=== PATIENT | female | born 1975 | race Caucasian/White ===

== ENCOUNTER 2018-10-18 08:30 | Inpatient (IN) | payer OTHER ==
[~2018-10-18] VITALS: Ht 162.6 cm; Wt 82.8 kg
[2018-10-18] VITALS (26 sets, daily range): BP systolic 110–137; BP diastolic 50–81; PULSE 91–114; RESP 13–22; Ht 162.6 cm; Wt 82.8 kg
[~2018-10-18 08:30] MED LIST: CEFAZOLIN 2 GM/50 ML (PMX) 50 ML IVPB ONE; LISI-471 PO
[2018-10-18] MEDS: SOD CHLORIDE 0.9% 1,000 ML IV SCH ×2 (10:02→20:48)
[2018-10-18] MEDS ORDERED: BUPIVACAINE 0.25% (MPF) 30 ML INJ ONE (12:15)
--- NOTE | 2018-10-18 12:27 | PREAC ---
Date/Time of Note Date/Time of Note DATE: 10/18/18 TIME: 12:26 Anesthesia Eval and Record Evaluation Time Pre-Procedure Interview DATE: 10/18/18 TIME: 12:26 Age 43 Sex female NPO: 8 hrs Preoperative diagnosis thyroid goiter Planned procedure total thyroidectomy Past Medical History Past Medical History: Includes Cardio: HTN GI: Obesity Surgery & Anesthesia Issues No known issue Meds Anticoagulation: No Beta Wilda within 24 hr: No Reason Beta Wilda not given: Pt. not on B-Wilda Reported Medications Lisinopril* (Lisinopril*) 20 Mg Tablet, 20 MG PO DAILY, #30 TAB 10/18/18 Current Medications Sodium Chloride 1,000 ml @ 75 mls/hr [id number] IV Last administered on 10/18/18at 10:02; Admin Dose 75 MLS/HR; Start 10/18/18 at 06:00; Stop 10/18/18 at 23:00 Meds reviewed: Yes Allergies Coded Allergies: No Known Allergies (Verified Allergy, Unknown, 10/18/18) Allergies Reviewed: Yes Labs/Studies Labs Reviewed: Reviewed by anesthesiologist Result Diagram: 10/18/18 0951 Laboratory Tests 10/18/18 09:51 test: Negative Pre-procedure Exam Last vitals Vital Signs Date Temp Pulse Resp B/P (MAP) Pulse Ox O2 O2 Flow FiO2 Time Delivery Rate 10/18/18 98.6 97 16 136/68 100 Room Air 10:03 (90) Airway: Adequate mouth opening, Adequate thyromental dist Mallampati: Mallampati IV Teeth: Normal Lung: Normal Heart: Normal ASA Physical Status ASA physical status: 2 Emergency: None Pre-operative Attestations Prior to commencing anesthesia and surgery, the patient was re-evaluated, there was verification of: *The patient's identity *The results of appropriate recent lab work and preoperative vital signs *The above evaluation not changing prior to induction *Anesthetic plan, risk benefits, alternative and complications discussed with patient/family; questions answered; patient/family understands, accepts and wishes to proceed. RANDALL SHIRLEY DO Oct 18, 2018 12:27
[2018-10-18] MEDS ORDERED: ROCURONIUM 50 MG INJ ONE (12:44)
[2018-10-18] MEDS ORDERED: ONDANSETRON 4 MG INJ ONE (12:44)
[2018-10-18] MEDS ORDERED: CEFAZOLIN 1 GM INJ ONE (12:44)
[2018-10-18] MEDS ORDERED: MIDAZOLAM 1 MG/ML 2 ML INJ ONE (12:44)
[2018-10-18] MEDS ORDERED: LIDOCAINE 2% (SDV) 5 ML INJ ONE (12:44)
[2018-10-18] MEDS ORDERED: PROPOFOL 20 ML ONE (12:44)
[2018-10-18] MEDS ORDERED: HYDROmorphONE 2 MG/ML SYG ONE (13:42)
[2018-10-18] MEDS ORDERED: SUGAMMADEX SODIUM 200 MG/2 ML VIAL IV ONE (14:24)
--- NOTE | 2018-10-18 14:35 | OPR ---
Date/Time of Note Date/Time of Note DATE: 10/18/18 TIME: 14:26 Operative Report Procedure Date: Oct 18, 2018 Preoperative Diagnosis multinodular goiter Postoperative Diagnosis same Operation/Procedure Performed 1. total thyroidectomy 2. modifier 22 for difficulty of operation due to anatomy and size of the multinodular goiter which altered and deformed the anatomy 3. localized adjacent tissue transfer with the use of skin flaps 24 sq cm defect of the neck 4. therapeutic injection of subcutaneous local anesthesia Surgeon see signature line A[employer] Architect none Anesthesia Type: general Estimated Blood Loss: 0 - 10 ml's Transfusion none Specimen total thyroid Grafts/Implants none Complications none Pt Condition Post Procedure: stable Indications This is a 43-year-old female with symptomatic multinodular goiter. She says that the pressure from the goiter is very significant. She has difficulty breathing and swallowing. Imaging shows evidence of tracheal deviation. She is brought to the OR for a total thyroidectomy. Risks alternatives benefits and personal were discussed the patient. Patient expressed understanding and consents to the operation. In particular due to the size of the multinodular goiter and the altered anatomy there is an increased risk for recurrent laryngeal nerve injury. This was discussed with the patient and the patient expressed understanding and consents to the operation. Procedure Description Patient is taken to the OR and prepped and draped in usual sterile fashion. Surgical time was performed. IV antibiotics given. Standard collar incision was made to breaths above the suprasternal notch. Dissection with cautery was c arried through the platysma. Superior inferior platysmal flaps are created. On initial inspection there is an enlarged quarter with altered anatomy with difficulty identifying the right and left lobes. Decision was made to divide the strap muscles at top one third on the left and right. This allowed further mobilization and exposure of the thyroid. The collar incision was also extended right and left. Attention was then paid to the right thyroid lobe. The superior inferior pole was mobilized in the middle thyroidal vein was ligated with handheld LigaSure. Further dissection was created to allow mobilization of the thyroid lobe. Attention was then paid to the left thyroid lobe. The anatomy was very altered and there was evidence of tracheal deviation with mass- effect. The left side was much larger and the superior inferior pole was mobilized with difficulty. The middle thyroidal vein was ligated using handheld LigaSure. Careful dissection and meticulous dissection allowed mobilization of the very large left thyroid lobe which did not appear like the left thyroid lobe was was in fact much larger than a whole thyroid lobe. This mass-effect showed that the right side was a lot smaller. Further mobilization of the right thyroid lobe was made and this was made medially to reflect the thyroid off the trachea. The trachea was repositioned back into the midline. Surgical markings would be completely and adequate as the multinodular goiter did not show any defined normal anatomy of right or left or even the poles. The specimen was measured approximately 14 x 7 cm. The specimen was sent. The disc surgery was technically very difficult and should qualify for a modifier 22 as the anatomy was enlarged and abnormal due to the thyroid multinodular goiter. Surgical site was then reevaluated in good hemostasis was established. Irrigation was performed with Valsalva maneuver of 40 cm water was performed. Once again good hemostasis was established. The irrigation was suctioned out. Due to the enlarged raw surface a #7 CARLITOS drain was placed through making a small incision in the skin left of the collar incision. This was then directed to the raw surface of where the thyroid was. This the drain was secured in place with a 2-0 nylon. This was then connected to a CARLITOS bulb. Carefully the strap muscles were then reapproximated in a [id number] Vicryl suture to reapproximate the lower and superior strap muscles this was done on the right and left side. In the midline the strap muscles were then require approximated with interrupted 3-0 Vicryl. The platysmal superior flaps were seen and due to the tissue defect localization to his transfer with these of skin flaps performed. Multilayer closure with initially the flaps of the platysmal flaps and then the skin flaps. These were closed with interrupted 3-0 Vicryl. The skin was then closed with a running 4-0 Monocryl. Therapeutic subcutaneous local anesthesia was injected at the incision site. Dry dressings were applied. Rohit ALEXANDRE Oct 18, 2018 14:35
--- NOTE | 2018-10-18 14:49 | PAC ---
Date/Time of Note Date/Time of Note DATE: 10/18/18 TIME: 14:48 Post-Anesthesia Notes Post-Anesthesia Note Last documented vital signs Vital Signs Date Temp Pulse Resp B/P (MAP) Pulse Ox O2 O2 Flow FiO2 Time Delivery Rate 10/18/18 98 112 16 123/55 100 Room Air 1450 Activity: WNL Respiratory function: WNL Cardiovascular function: WNL Mental status: Baseline Pain reasonably controlled: Yes Hydration appropriate: Yes Nausea/Vomiting absent: Yes RANDALL SHIRLEY DO Oct 18, 2018 14:49
[2018-10-18] MEDS: LACTATED RINGER'S 1,000 ML IV SCH (14:52)
[2018-10-18] MEDS: morphine 2 MG INJ IV PRN ×2 (14:59→16:57)
[2018-10-18] MEDS ORDERED: HYDROmorphONE 1 MG/5 ML IV SYRINGE IV PRN ×3 (15:00)
[2018-10-18] MEDS ORDERED: METOPROLOL 5 MG INJ IV STA (15:10)
[2018-10-18] MEDS: CEFAZOLIN 2 GM/50 ML (PMX) 50 ML IVPB SCH ×2 (15:13→23:00)
[2018-10-18] MEDS ORDERED: CALCIUM GLUCONATE 10% 2 GM in DEXTROSE 5% 100 ML IVPB STA (15:53)
[2018-10-18] MEDS ORDERED: ACETAMINOPHEN 325 MG TAB PO PRN (18:30)
[2018-10-18] MEDS ORDERED: ONDANSETRON 4 MG INJ IV PRN (20:00)
--- NOTE | 2018-10-18 20:16 | RADRPT ---
Vent Rate: 89 bpm RR Interval: 676 msec MS Interval: 128 msec QRS Duration: 87 msec QT Interval: 352 msec QTC Interval: 428 msec P-R-T [place]: -2 - 56 - 39 degrees Sinus rhythm...normal P axis, V-rate 50- 99 Electronically Signed By: Gui Sandoval
--- NOTE | 2018-10-18 21:09 | HP ---
DATE OF ADMISSION: 10/18/2018 CHIEF COMPLAINT AND HISTORY OF PRESENT ILLNESS: The patient is a 43-year-old female with a history o f hypertension and symptomatic multinodular goiter. The patient was seen by Dr. Ziegler as an outpatient and had symptoms including difficulty in breathing and swallowing. Outpatient imaging showed eviden ce of tracheal deviation. The patient was brought into the hospital today and underwent a total thyr oidectomy. The patient has significant postoperative pain and is being admitted for further evaluati on and management. The patient does not have any chest pain and is breathing comfortably. No reporte d vomiting. No report of any focal weakness. No temperature spike since admission. REVIEW OF SYSTEMS: Other than postoperative pain, rest of review of systems. unremarkable. ALLERGIES: NONE. SOCIAL HISTORY: No smoking, no alcohol. MEDICATIONS PRIOR TO ADMISSION: Lisinopril. FAMILY HISTORY: Noncontributory. PHYSICAL EXAMINATION: GENERAL: Awake, alert. VITAL SIGNS: Temperature 98.3, pulse is 93, respiration 18, blood pressure 123/65, O2 saturation 95% on room air. HEENT: No eye discharge or redness. Conjunctivae normal. Oropharynx examination was deferred due t o recent surgery. NECK: The patient is status post total thyroidectomy. LUNGS: Clear. CARDIOVASCULAR: S1, S2 normal. No murmur. ABDOMEN: Soft, nontender. EXTREMITIES: No edema. Pedal pulses palpable. SKIN: Without acute rash. NEUROLOGIC: The patient is awake, alert, fairly oriented, with no gross focal deficit. LABORATORY DATA: Labs done today: WBC 8.9, hemoglobin 11.8, platelets are 285. Sodium 138, potassi um 4.2, BUN 9, creatinine 0.8, glucose 106. Liver enzymes normal. IMPRESSION: 1. Symptomatic multinodular goiter, status post total thyroidectomy. 2. Hypertension. PLAN: The patient admitted on the medical floor. The patient will be started on clear liquid diet, which will be advanced as tolerated. The patient will receive IV cefazolin as per protocol. Continu e IV fluids, and for pain control, the patient will be given Tylenol, [place] and IV morphine. We will use SCD for DVT prophylaxis. We will resume lisinopril. DISPOSITION: Once cleared by surgery, we will continue to follow from a medical standpoint. Dictated By: ARMEN DARBY/LUCY Conf#: [id number] DID#: [id number] CC: PB ZIEGLER MD;*[facility]*
[2018-10-19] VITALS: BP 99/57; PULSE 108; RESP 18
[2018-10-19] MEDS: HYDROCODONE/APAP (5/325) TAB PO PRN ×3 (00:12→16:45)
[2018-10-19] MEDS: LACTATED RINGER'S 1,000 ML IV SCH ×3 (00:24→20:24)
[2018-10-19 00:30] VITALS: BP 106/59; PULSE 97
[2018-10-19 04:00] VITALS: BP 108/60; PULSE 92; RESP 17
[2018-10-19] MEDS: CEFAZOLIN 2 GM/50 ML (PMX) 50 ML IVPB SCH (05:46)
[2018-10-19] MEDS: morphine 2 MG INJ IV PRN (06:41)
[2018-10-19 07:45] VITALS: BP 117/57; PULSE 89; RESP 19
[2018-10-19] MEDS: LISINOPRIL 20 MG TAB PO SCH (08:43)
[2018-10-19 15:10] VITALS: BP 112/62; PULSE 78; RESP 18
--- NOTE | 2018-10-19 17:01 | PN ---
Date/Time of Note Date/Time of Note DATE: 10/19/18 TIME: 17:00 Assessment/Plan VTE Prophylaxis Risk score (from Nsg)>0 risk: 6 SCD applied (from Nsg): Yes Pharmacological prophylaxis: other Lines/Catheters IV Catheter Type (from Nrsg): Saline Lock Urinary Cath still in place: No Assessment/Plan Assessment/Plan s/p total thyroidectomy for enlarged goiter dc today or tomorrow Result Diagram: 10/19/18 0505 10/19/18 0505 Results 24hrs Laboratory Tests Test 10/19/18 05:05 White Blood Count 11.7 #H Red Blood Count 3.89 L Hemoglobin 11.4 L Hematocrit 35.4 L Mean Corpuscular Volume 91.0 Mean Corpuscular Hemoglobin 29.3 Mean Corpuscular Hemoglobin Concent 32.2 Red Cell Distribution Width 13.1 Platelet Count 305 Mean Platelet Volume 9.4 Immature Granulocytes % 0.400 Neutrophils % 70.0 Lymphocytes % 20.7 Monocytes % 8.2 Eosinophils % 0.5 Basophils % 0.2 Nucleated Red Blood Cells % 0.0 Immature Granulocytes # 0.050 H Neutrophils # 8.2 H Lymphocytes # 2.4 Monocytes # 1.0 H Eosinophils # 0.1 Basophils # 0.0 Nucleated Red Blood Cells # 0.0 Sodium Level 135 Potassium Level 4.1 Chloride Level 101 Carbon Dioxide Level 28 Anion Gap 6 Blood Urea Nitrogen 8 Creatinine 0.52 Est Glomerular Filtrat Rate mL/min > 60 Glucose Level 87 Calcium Level 8.7 Total Bilirubin 0.6 Direct Bilirubin 0.00 Indirect Bilirubin 0.6 Aspartate Amino Transf (AST/SGOT) 35 Alanine Aminotransferase (ALT/SGPT) 33 Alkaline Phosphatase 43 Total Protein 6.7 Albumin 3.4 Globulin 3.30 H Albumin/Globulin Ratio 1.03 Subjective 24 Hr Interval Summary Free Text/Dictation patient looks good voice ok. drain in place. She's a little nervous and wants to stay another day Exam/Review of Systems Exam Vitals Vital Signs Date Temp Pulse Resp B/P (MAP) Pulse Ox O2 O2 Flow FiO2 Time Delivery Rate 10/19/18 98.1 78 18 112/62 99 15:10 (79) 10/19/18 Room Air 04:00 10/18/18 2.0 16:45 Intake and Output 10/18/18 10/18/18 10/19/18 1515:00 23:00 07:00 IntakeIntake Total 1250 ml 1200 ml 420 ml OutputOutput Total 35 ml 610 ml 500 ml BalanceBalance 1215 ml 590 ml -80 ml Exam c/d/i Results Results 24hrs Laboratory Tests Test 10/19/18 05:05 White Blood Count 11.7 #H Red Blood Count 3.89 L Hemoglobin 11.4 L Hematocrit 35.4 L Mean Corpuscular Volume 91.0 Mean Corpuscular Hemoglobin 29.3 Mean Corpuscular Hemoglobin Concent 32.2 Red Cell Distribution Width 13.1 Platelet Count 305 Mean Platelet Volume 9.4 Immature Granulocytes % 0.400 Neutrophils % 70.0 Lymphocytes % 20.7 Monocytes % 8.2 Eosinophils % 0.5 Basophils % 0.2 Nucleated Red Blood Cells % 0.0 Immature Granulocytes # 0.050 H Neutrophils # 8.2 H Lymphocytes # 2.4 Monocytes # 1.0 H Eosinophils # 0.1 Basophils # 0.0 Nucleated Red Blood Cells # 0.0 Sodium Level 135 Potassium Level 4.1 Chloride Level 101 Carbon Dioxide Level 28 Anion Gap 6 Blood Urea Nitrogen 8 Creatinine 0.52 Est Glomerular Filtrat Rate mL/min > 60 Glucose Level 87 Calcium Level 8.7 Total Bilirubin 0.6 Direct Bilirubin 0.00 Indirect Bilirubin 0.6 Aspartate Amino Transf (AST/SGOT) 35 Alanine Aminotransferase (ALT/SGPT) 33 Alkaline Phosphatase 43 Total Protein 6.7 Albumin 3.4 Globulin 3.30 H Albumin/Globulin Ratio 1.03 Medications Medication Current Medications Morphine Sulfate (morphine) 2 mg Q2H PRN IV PAIN LEVEL 6-10 Last administered on 10/19/18 06:41; Admin Dose 2 MG; Start 10/18/18 at 14:30 Acetaminophen/ Hydrocodone Bitart ([place] (5/325)) 1 tab Q6H PRN PO PAIN LEVEL 6-10 Last administered on 10/19/18at 16:45; Admin Dose 1 TAB; Start 10/18/18 at 14:30 Lactated Ringer's 1,000 ml @ 100 mls/hr Q10H IV Last administered on 10/18/18 14:52; Admin Dose 100 MLS/HR; Start 10/18/18 at 14:24 Lisinopril (Zestril) 20 mg DAILY PO Last administered on 10/19/18at 08:43; Admin Dose 20 MG; Start 10/19/18 at 09:00 Acetaminophen (Tylenol Tab) 650 mg Q4H PRN PO MILD PAIN(1-3)OR ELEVATED TEMP; Start 10/18/18 at 18:30 Ondansetron HCl (Zofran Inj) 4 mg Q4H PRN IV NAUSEA AND/OR VOMITING Last administered on 10/18/18at 20:48; Admin Dose 4 MG; Start 10/18/18 at 20:00 Rohit ALEXANDRE Oct 19, 2018 17:01
--- NOTE | 2018-10-19 17:22 | PN ---
Date/Time of Note Date/Time of Note DATE: 10/19/18 TIME: 17:19 Assessment/Plan VTE Prophylaxis Risk score (from Ns)>0 risk: 6 SCD applied (from Nsg): Yes Pharmacological prophylaxis: NA/contraindicated Pharm contraindication: surgical contra Lines/Catheters IV Catheter Type (from Nrsg): Saline Lock Urinary Cath still in place: No Assessment/Plan Hospital Course Patient is complains of significant amount of pain and difficulty swallowing, progress diet per surgery continue to monitor. If patient continues to improve anticipate discharge home tomorrow. Assessment/Plan - Symptomatic multinodular goiter, status post total thyroidectomy by Dr. Ziegler. Continue [place] and morphine PRN for pain and Zofran as needed for nausea, monitor drainage volume. Monitor serum calcium. - Hypertension. Further recommendations based on clinical course. Plan of care discussed with Dr. Sarabia. Result Diagram: 10/19/18 0505 10/19/18 0505 Results 24hrs Laboratory Tests Test 10/19/18 05:05 White Blood Count 11.7 #H Red Blood Count 3.89 L Hemoglobin 11.4 L Hematocrit 35.4 L Mean Corpuscular Volume 91.0 Mean Corpuscular Hemoglobin 29.3 Mean Corpuscular Hemoglobin Concent 32.2 Red Cell Distribution Width 13.1 Platelet Count 305 Mean Platelet Volume 9.4 Immature Granulocytes % 0.400 Neutrophils % 70.0 Lymphocytes % 20.7 Monocytes % 8.2 Eosinophils % 0.5 Basophils % 0.2 Nucleated Red Blood Cells % 0.0 Immature Granulocytes # 0.050 H Neutrophils # 8.2 H Lymphocytes # 2.4 Monocytes # 1.0 H Eosinophils # 0.1 Basophils # 0.0 Nucleated Red Blood Cells # 0.0 Sodium Level 135 Potassium Level 4.1 Chloride Level 101 Carbon Dioxide Level 28 Anion Gap 6 Blood Urea Nitrogen 8 Creatinine 0.52 Est Glomerular Filtrat Rate mL/min > 60 Glucose Level 87 Calcium Level 8.7 Total Bilirubin 0.6 Direct Bilirubin 0.00 Indirect Bilirubin 0.6 Aspartate Amino Transf (AST/SGOT) 35 Alanine Aminotransferase (ALT/SGPT) 33 Alkaline Phosphatase 43 Total Protein 6.7 Albumin 3.4 Globulin 3.30 H Albumin/Globulin Ratio 1.03 Exam/Review of Systems Exam Vitals Vital Signs Date Temp Pulse Resp B/P (MAP) Pulse Ox O2 O2 Flow FiO2 Time Delivery Rate 10/19/18 98.1 78 18 112/62 99 15:10 (79) 10/19/18 Room Air 04:00 10/18/18 2.0 16:45 Intake and Output 10/18/18 10/18/18 10/19/18 1515:00 23:00 07:00 IntakeIntake Total 1250 ml 1200 ml 420 ml OutputOutput Total 35 ml 610 ml 500 ml BalanceBalance 1215 ml 590 ml -80 ml Constitutional: alert, oriented Neck: other (Status post total thyroidectomy, surgical drain) Respiratory: clear to auscultation Cardiovascular: nl pulses Gastrointestinal: soft, non-tender Extremities: normal pulses Neurological: nl mental status Results Results 24hrs Laboratory Tests Test 10/19/18 05:05 White Blood Count 11.7 #H Red Blood Count 3.89 L Hemoglobin 11.4 L Hematocrit 35.4 L Mean Corpuscular Volume 91.0 Mean Corpuscular Hemoglobin 29.3 Mean Corpuscular Hemoglobin Concent 32.2 Red Cell Distribution Width 13.1 Platelet Count 305 Mean Platelet Volume 9.4 Immature Granulocytes % 0.400 Neutrophils % 70.0 Lymphocytes % 20.7 Monocytes % 8.2 Eosinophils % 0.5 Basophils % 0.2 Nucleated Red Blood Cells % 0.0 Immature Granulocytes # 0.050 H Neutrophils # 8.2 H Lymphocytes # 2.4 Monocytes # 1.0 H Eosinophils # 0.1 Basophils # 0.0 Nucleated Red Blood Cells # 0.0 Sodium Level 135 Potassium Level 4.1 Chloride Level 101 Carbon Dioxide Level 28 Anion Gap 6 Blood Urea Nitrogen 8 Creatinine 0.52 Est Glomerular Filtrat Rate mL/min > 60 Glucose Level 87 Calcium Level 8.7 Total Bilirubin 0.6 Direct Bilirubin 0.00 Indirect Bilirubin 0.6 Aspartate Amino Transf (AST/SGOT) 35 Alanine Aminotransferase (ALT/SGPT) 33 Alkaline Phosphatase 43 Total Protein 6.7 Albumin 3.4 Globulin 3.30 H Albumin/Globulin Ratio 1.03 Medications Medication Current Medications Morphine Sulfate (morphine) 2 mg Q2H PRN IV PAIN LEVEL 6-10 Last administered on 10/19/18at 06:41; Admin Dose 2 MG; Start 10/18/18 at 14:30 Acetaminophen/ Hydrocodone Bitart ([place] (5/325)) 1 tab Q6H PRN PO PAIN LEVEL 6-10 Last administered on 10/19/18 16:45; Admin Dose 1 TAB; Start 10/18/18 at 14:30 Lactated Ringer's 1,000 ml @ 100 mls/hr Q10H IV Last administered on 10/18/18 14:52; Admin Dose 100 MLS/HR; Start 10/18/18 at 14:24 Lisinopril (Zestril) 20 mg DAILY PO Last administered on 10/19/18 08:43; Admin Dose 20 MG; Start 10/19/18 at 09:00 Acetaminophen (Tylenol Tab) 650 mg Q4H PRN PO MILD PAIN(1-3)OR ELEVATED TEMP; Start 10/18/18 at 18:30 Ondansetron HCl (Zofran Inj) 4 mg Q4H PRN IV NAUSEA AND/OR VOMITING Last administered on 10/18/18at 20:48; Admin Dose 4 MG; Start 10/18/18 at 20:00 VITO VIERA Oct 19, 2018 17:22
[2018-10-19 19:50] VITALS: BP 110/70; PULSE 87; RESP 18
[2018-10-20 02:09] VITALS: BP 110/59; PULSE 93; RESP 18
[2018-10-20] MEDS: HYDROCODONE/APAP (5/325) TAB PO PRN ×3 (03:12→21:23)
[2018-10-20] MEDS: LACTATED RINGER'S 1,000 ML IV SCH ×2 (06:24→16:24)
[2018-10-20 07:42] VITALS: BP 108/59; PULSE 83; RESP 14
[2018-10-20] MEDS: LISINOPRIL 20 MG TAB PO SCH (09:00)
--- NOTE | 2018-10-20 13:15 | PN ---
Date/Time of Note Date/Time of Note DATE: 10/20/18 TIME: 13:15 Assessment/Plan VTE Prophylaxis Risk score (from Ns)>0 risk: 5 SCD applied (from Ns): Yes SCD contraindicated: other Pharmacological prophylaxis: other Pharm contraindication: other Lines/Catheters IV Catheter Type (from Nrsg): Saline Lock Urinary Cath still in place: No Assessment/Plan Assessment/Plan 1. Symptomatic multinodular goiter, status post total thyroidectomy. 2. Hypertension. Result Diagram: 10/19/18 0505 10/19/18 0505 Subjective 24 Hr Interval Summary Free Text/Dictation c/o dysphagia; but better than yesterday afebrile family at bed side no events reported last night dw staff Eyes: no complaints ENT: pain (neck inscional pain) Respiratory: no complaints Cardiovascular: no complaints Gastrointestinal: no complaints Genitourinary: no complaints Neurologic: no complaints Endocrine: no complaints Psychological: nl mood/affect Immunologic: no complaints Exam/Review of Systems Exam Vitals Vital Signs Date Temp Pulse Resp B/P (MAP) Pulse Ox O2 O2 Flow FiO2 Time Delivery Rate 10/20/18 98.3 83 14 108/59 98 Room Air 07:42 (75) 10/18/18 2.0 16:45 Intake and Output 10/19/18 10/19/18 10/20/18 1515:00 23:00 07:00 IntakeIntake Total 720 ml 200 ml OutputOutput Total 20 ml 15 ml BalanceBalance 700 ml 185 ml Constitutional: alert, oriented, well developed Psych: nl mood/affect Head: normocephalic Eyes: nl lids, nl sclera ENMT: nl external ears & nose Neck: other (dressing -ddi) Respiratory: clear to auscultation Cardiovascular: nl pulses, other (s1s2) Gastrointestinal: soft, non-tender Musculoskeletal: nl extremities to inspection Extremities: normal pulses Neurological: nl mental status, nl speech Skin: nl turgor Lymph: nontender Medications Medication Current Medications Morphine Sulfate (morphine) 2 mg Q2H PRN IV PAIN LEVEL 6-10 Last administered on 10/19/18at 06:41; Admin Dose 2 MG; Start 10/18/18 at 14:30 Acetaminophen/ Hydrocodone Bitart ([place] (5/325)) 1 tab Q6H PRN PO PAIN LEVEL 6-10 Last administered on 10/20/18 09:49; Admin Dose 1 TAB; Start 10/18/18 at 14:30 Lactated Ringer's 1,000 ml @ 100 mls/hr Q10H IV Last administered on 10/18/18 14:52; Admin Dose 100 MLS/HR; Start 10/18/18 at 14:24 Lisinopril (Zestril) 20 mg DAILY PO Last administered on 10/19/18 08:43; Admin Dose 20 MG; Start 10/19/18 at 09:00 Acetaminophen (Tylenol Tab) 650 mg Q4H PRN PO MILD PAIN(1-3)OR ELEVATED TEMP; Start 10/18/18 at 18:30 Ondansetron HCl (Zofran Inj) 4 mg Q4H PRN IV NAUSEA AND/OR VOMITING Last adm inistered on 10/18/18 20:48; Admin Dose 4 MG; Start 10/18/18 at 20:00 NICHOLE BRICENO Oct 20, 2018 13:15
[2018-10-20 14:45] VITALS: BP 114/62; PULSE 86; RESP 18
[2018-10-20 19:43] VITALS: BP 113/54; PULSE 87; RESP 18
--- NOTE | 2018-10-23 23:02 | DS ---
Date/Time of Note Date/Time of Note DATE: 10/23/18 TIME: 23:02 Discharge Summary Admission/Discharge Info Admit Date/Time Oct 19, 2018 at 17:24 Discharge Date/Time Oct 20, 2018 at 22:40 Home Meds Reported Medications Lisinopril* (Lisinopril*) 20 Mg Tablet, 20 MG PO DAILY, #30 TAB 10/18/18 Primary Care Provider Not On Staff Doctor NICHOLE BRICENO Oct 23, 2018 23:02
== END 2018-10-20 22:40 | disposition home or self-care (01) | DRG 941 ==
LOC: SDS 08:30 → REC 14:25 → INTOOBSV 14:25 → MS1 16:32 → OBSVTOIN 10-19 17:24
PROVIDERS: ADMIT Internal Medicine; ATTEND Internal Medicine
PROC: 0HX4XZZ Transfer Neck Skin, External Approach (ICD-10-PCS; 2018-10-18)
PROC: 0GTH0ZZ Resection of Right Thyroid Gland Lobe, Open Approach (ICD-10-PCS; 2018-10-18)
PROC: 0GTG0ZZ Resection of Left Thyroid Gland Lobe, Open Approach (ICD-10-PCS; principal; 2018-10-18 12:00)
DX: G89.18 Other acute postprocedural pain (principal); R13.10 Dysphagia, unspecified; E04.2 Nontoxic multinodular goiter; I10 Essential (primary) hypertension
CPT/HCPCS: 71045; 80053; 82310; 84703; 85025; 85610; 85730; 88307; 93005; 99217; G0378; J0610; J0690; J1170; J2250; J2270; J2405; J3010; J7030; J7120